=== PATIENT | male | born 1960 | race Caucasian/White ===

== ENCOUNTER 2017-07-24 12:21 | Emergency (ER) | payer BC, OTHER ==
[2017-07-24] MEDS ORDERED: ALBUTEROL NEB 2.5 MG/3 ML INH STA (13:15)
--- NOTE | 2017-07-24 13:17 | ED Physician Documentation ---
PD HPI DYSPNEA - Stated complaint Stated Complaint: CONGESTION - Chief complaint Chief Complaint: Resp - History obtained from History obtained from: Patient - History of Present Illness Timing - onset: Other (Sick for 10 days with productive cough, central chest pain with coughing and mild shortness of breath, he also has a lot of nasal congestion but no sore throat or sinus pain. No body aches.) Review of Systems Constitutional: reports: Fatigue. denies: Fever, Chills, Myalgias, Sweats Nose: reports: Rhinorrhea / runny nose, Congestion. denies: Sinus pressure / pain Throat: denies: Sore throat Respiratory: reports: Dyspnea, Cough PD PAST MEDICAL HISTORY - Past Medical History Past Medical History: Yes Cardiovascular: Hypertension Respiratory: None Neuro: None Endocrine/Autoimmune: None GI: None : None HEENT: None Psych: None Musculoskeletal: None Derm: None - Past Surgical History Past Surgical History: No Ortho: Knee replacement - Present Medications Home Medications: Ambulatory Orders Medication Instructions Recorded Confirmed Telmisartan [Micardis] 1 mg PO DAILY 02/22/15 07/24/17 Albuterol Sulfate [Proventil Hfa 1 - 2 puffs IH Q4H PRN #1 07/24/17 Inhaler] [email or web address] HYDROcod/ACETAM 5/325 [[place] 5/325] 1 - 2 ea PO Q6H PRN #15 tablet 07/24/17 guaiFENesin/CODEINE [Robitussin AC] 5 - 10 ml PO Q6H PRN #120 ml 07/24/17 hydroCHLOROthiazide 25 mg PO DAILY 07/24/17 07/24/17 [Hydrochlorothiazide] predniSONE [Deltasone] 60 mg PO DAILY 5 Days tablet 07/24/17 - Allergies Allergies/Adverse Reactions: Allergies Allergy/AdvReac Type Severity Reaction Status Date / Time No Known Drug Allergies Allergy Verified 07/24/17 12:28 - Social History Does the pt smoke?: No Smoking Status: Never smoker Does the pt drink ETOH?: Yes Does the pt have substance abuse?: No - Immunizations Immunizations are current?: No Immunizations: TDAP >10years/unknown - POLST Patient has POLST: No PD ED PE NORMAL - Vitals Vital signs reviewed: Yes - General General: Alert and oriented X 3, No acute distress - HEENT HEENT: PERRL, Ears normal, Moist mucous membranes, Pharynx benign (s/p uppp), Other - Neck Neck: Supple, no meningeal sign, No bony TTP - Cardiac Cardiac: RRR, No murmur, Other (chest nttp) - Respiratory Respiratory: No respiratory distress, Other (mild exp wheezes, nonfocal) - Abdomen Abdomen: Non tender - Extremities Extremities: No edema, No calf tenderness / cord - Neuro Neuro: Alert and oriented X 3, Normal speech Results - Vitals Vitals: Vital Signs - 24 hr 07/24/17 07/24/17 12:24 13:36 Temperature 37.1 C Heart Rate 88 84 Respiratory 22 16 Rate Blood Pressure 179/92 H O2 Saturation 95 Oxygen O2 Source Room air - EKG (time done) 1235 Rate: Rate (enter#) (87) Rhythm: NSR [place]: Normal Intervals: Normal [place] QRS: Normal Ischemia: Normal ST segments Computer interpretation: Agree with computer - Rads (name of study) 2v chest Radiology: EMP read contemporaneously (NAD, 8mm LETI nodule) PD MEDICAL DECISION MAKING - ED course ED course: 57-year-old gentleman with what sounds like viral bronchitis, no acute findings on chest x-ray. The left upper lobe nodule was discussed with him, this is a pre-existing phenomenon per him and he has had serial x-rays for the last 15 years without change. He was given a copy of the x-ray read to discuss with his physician regardless. He was feeling better after an albuterol neb here. Departure - Departure Disposition: 01 Home, Self Care Clinical Impression: Viral bronchitis, Pulmonary nodule Condition: Good Record reviewed to determine appropriate education?: Yes Instructions: ED Upper Resp Infec No Abx Tx Prescriptions: Albuterol Sulfate [Proventil Hfa Inhaler] 1 - 2 puffs IH Q4H PRN #1 hfa.[email or web address] PRN Reason: Cough guaiFENesin/CODEINE [Robitussin AC] 5 - 10 ml PO Q6H PRN #120 ml PRN Reason: Cough HYDROcod/ACETAM 5/325 [[place] 5/325] 1 - 2 ea PO Q6H PRN #15 tablet PRN Reason: Pain predniSONE [Deltasone] 60 mg PO DAILY 5 Days tablet Comments: Discuss the pulmonary nodule with your physician in [place], however. From your description this sounds like it is a nonchanging phenomenon. No other findings are present on the chest x-ray, specifically there is no pneumonia or bacterial infection present. Call your doctor to arrange a follow-up appointment, make the next available appointment. In the interim, return anytime if worse or if new symptoms develop. Your blood pressure was elevated today on check into the emergency department. This does not mean that you have hypertension, it is a common phenomenon to come to the emergency department and have elevated blood pressure. I recommend that you see your primary care physician within the week to have it rechecked when you are feeling better.
--- NOTE | 2017-07-24 13:42 | XRAY Report ---
EXAM: CHEST RADIOGRAPHY EXAM DATE: 07/24/2017 01:25 PM. CLINICAL HISTORY: Cough chest pain. COMPARISON: None available. TECHNIQUE: 2 views. FINDINGS: Lungs/Pleura: No acute infiltrate or consolidation. No pneumothorax or pleural effusion. A left upper lobe nodule measures approximately 8 mm. Mediastinum: Heart and mediastinal contours are unremarkable. Other: None. IMPRESSION: 1. No acute infiltrate or consolidation. 2. Incidental left upper lobe pulmonary nodule for which a follow-up chest CT is suggested for geovanna mcintyre [facility] Referring Provider Line: [phone] SITE ID: [id number]
[2017-07-24 14:26] VITALS: BP 135/84
== END 2017-07-24 14:25 | disposition home or self-care (01) ==
LOC: ED 12:21
DX: J20.8 Acute bronchitis due to other specified organisms (principal); R91.1 Solitary pulmonary nodule; I10 Essential (primary) hypertension; Z96.659 Presence of unspecified artificial knee joint
CPT/HCPCS: 71020; 93005; 99283; J7613

== ENCOUNTER 2019-03-30 19:45 | Outpatient (CLI) | payer OTHER | END 2019-03-30 19:46 | disposition EMS.NT | LOC: EMS 19:45 | PROVIDERS: ATTEND Surgery | DX: R55 Syncope and collapse (principal) ==

== ENCOUNTER 2019-03-30 21:04 | Emergency (ER) | payer OTHER ==
[2019-03-30 21:16] VITALS: BP 133/70
== END 2019-03-30 21:48 | disposition left against medical advice (07) ==
LOC: ED 21:04
DX: Z53.21 Procedure and treatment not carried out due to patient leaving prior to being seen by health care provider (principal)

== ENCOUNTER 2023-09-02 11:56 | Emergency (ER) | payer OTHER ==
--- NOTE | 2023-09-02 12:14 | ED Physician Documentation ---
History of Present Illness - Stated complaint Stated Complaint: SOA,CHEST PX - Chief complaint Chief Complaint: Cardiac - History obtained from History obtained from: Patient - History of Present Illness Timing: Last night Pain level max: 2 Pain level now: 2 - Additonal information Additional information: Patient is a 63-year-old male who presents to the emergency department stating that he has had substernal chest pain since last night. Nonradiating. Rated as a 2 out of 10. Nothing seems to make it better or worse. He states he was at the [place] this morning and felt lightheaded so decided he should come be evaluated. Denies any cardiac history in the past. Does have a longstanding history of hypertension. No history of diabetes. Does not smoke. He states he was told by an anesthesiologist during her surgery that he had "a glitch" in his heart. He states he was told he should get that looked at by his doctor. The patient is on metoprolol, telmisartan, methylphenidate at home. Is not on any antiplatelet or anticoagulant medication Review of Systems Constitutional: denies: Fever, Chills Nose: denies: Rhinorrhea / runny nose, Congestion GI: denies: Vomiting, Diarrhea Skin: denies: Rash Musculoskeletal: denies: Neck pain, Back pain Neurologic: denies: Headache PD PAST MEDICAL HISTORY - Past Medical History Past Medical History: Yes Cardiovascular: Hypertension Respiratory: None Endocrine/Autoimmune: None GI: None : None HEENT: None Psych: None Musculoskeletal: None Derm: None - Past Surgical History Past Surgical History: No Ortho: Knee replacement - Present Medications Home Medications: Ambulatory Orders Medication Instructions Recorded Confirmed Telmisartan [Micardis] 1 mg PO DAILY 02/22/15 07/24/17 Albuterol Sulfate [Proventil Hfa 1 - 2 puffs IH Q4H PRN #1 07/24/17 Inhaler] hfa.aer.ad HYDROcod/ACETAM 5/325 [[place] 5/325] 1 - 2 ea PO Q6H PRN #15 tablet 07/24/17 guaiFENesin/CODEINE [Robitussin AC] 5 - 10 ml PO Q6H PRN #120 ml 07/24/17 hydroCHLOROthiazide 25 mg PO DAILY 07/24/17 07/24/17 [Hydrochlorothiazide] predniSONE [Deltasone] 60 mg PO DAILY 5 Days tablet 07/24/17 Ciprofloxacin HCl [Cipro] 500 mg PO BID #6 tablet 03/07/22 Ondansetron Odt [Zofran] 4 mg TL Q6H PRN #10 tablet 03/07/22 Aspirin EC [Ecotrin] 81 mg PO DAILY #30 tablet 09/02/23 Metoprolol Succinate [Toprol Xl] 50 mg PO DAILY #30 tablet 09/02/23 - Allergies Allergies/Adverse Reactions: Allergies Allergy/AdvReac Type Severity Reaction Status Date / Time No Known Drug Allergies Allergy Verified 09/02/23 12:01 - Social History Does the pt smoke?: No Smoking Status: Never smoker Does the pt drink ETOH?: Yes Does the pt have substance abuse?: No - Immunizations Immunizations are current?: No Immunizations: TDAP >10years/unknown - POLST Patient has POLST: No PD ED PE NORMAL - Vitals Vital signs reviewed: Yes - General General: Alert and oriented X 3, No acute distress - HEENT HEENT: PERRL, Moist mucous membranes - Neck Neck: Supple, no meningeal sign - Cardiac Cardiac: Other (Irregularly irregular) - Respiratory Respiratory: No respiratory distress, Clear bilaterally - Abdomen Abdomen: Soft, Non tender, Non distended - Derm Derm: Warm and dry - Extremities Extremities: No edema, No calf tenderness / cord - Neuro Neuro: Alert and oriented X 3 - Psych Psych: Normal mood, Normal affect Results - Vitals Vitals: Vital Signs - 24 hr 09/02/23 09/02/23 09/02/23 12:01 12:19 12:29 Temperature 36.8 C Heart Rate 80 127 H 120 H Respiratory 16 12 18 Rate Blood Pressure 123/82 H 116/85 H 119/71 O2 Saturation 100 97 97 09/02/23 09/02/23 09/02/23 12:32 12:38 13:15 Temperature Heart Rate 131 H 96 102 H Respiratory 18 21 22 Rate Blood Pressure 110/66 128/77 94/62 O2 Saturation 97 97 97 09/02/23 13:54 Temperature Heart Rate 90 Respiratory 18 Rate Blood Pressure 113/81 H O2 Saturation 97 Oxygen O2 Source Room air - EKG (time done) 1209 EKG releavant findings:: EKG personally interpreted by author of this note. Relevant findings are: Rate: Rate (enter#) (132) Rhythm: Atrial fibrillation (RVR) QRS: Normal Ischemia: Normal ST segments - Labs Labs: Laboratory Tests 09/02/23 09/02/23 12:12 12:12 WBC 9.5 RBC 4.69 L Hgb 14.8 Hct 41.7 L MCV 88.9 MCH 31.6 H MCHC 35.5 RDW 11.3 L Plt Count 265 MPV 10.4 Neut # (Auto) 7.1 H Lymph # (Auto) 1.7 [place] # (Auto) 0.6 Eos # (Auto) 0.0 Baso # (Auto) 0.0 Absolute Nucleated RBC 0.00 Nucleated RBC % 0.0 Sodium 134 L Potassium 3.8 Chloride 97 L Carbon Dioxide 23 Anion Gap 14.0 H BUN 21 H Creatinine 1.0 Estimated GFR (MDRD) 75 L Glucose 93 Calcium 9.8 Total Bilirubin 1.9 H AST 14 ALT 14 Alkaline Phosphatase 45 Troponin I High Sens 9.0 Total Protein 7.2 Albumin 4.5 Globulin 2.7 Albumin/Globulin Ratio 1.7 Lipase 11 - Rads (name of study) cxr Relevant Findings:: Final report received, See rad report PD Medical Decision Making - ED course Complexity details: reviewed results, re-evaluated patient, considered differential, d/w patient ED course: Patient with atrial fibrillation with rapid ventricular response. No acute findings on chest x-ray. Given 10 mg of diltiazem, heart rate dropped to around 100. He is on 25 metoprolol XL at home. Was given 50mg oral metoprolol. The patient remained rate controlled, blood pressure remained stable. Patient has no further chest pain, shortness of breath or lightheadedness with standing. Will increase his metoprolol to 50 mg daily, started on a baby aspirin. [id number] score is 1. We will have him follow-up with his PCP for further evaluation of his atrial fibrillation, echocardiogram and possible cardiology referral. Patient states that he did recently restart his methylphenidate, we will have him hold this due to the increased tachycardia risk. He had been off it for about 3 months and restarted it a few days ago Patient counseled regarding signs and symptoms for which I believe and urgent re-evaluation would be necessary. Patient with good understanding of and agreement to plan and is comfortable going home at this time This document was made in part using voice recognition software. While efforts are made to proofread this document, sound alike and grammatical errors may occur. No significant lab abnormalities. High sensitive troponin is negative Departure - Departure Disposition: 01 Home, Self Care Clinical Impression: Atrial fibrillation with controlled ventricular rate Condition: Good Instructions: ED Afib Follow-Up: your,doctor in 1 week [Other] Prescriptions: Aspirin EC [Ecotrin] 81 mg PO DAILY #30 tablet Metoprolol Succinate [Toprol Xl] 50 mg PO DAILY #30 tablet Comments: Your prescriptions were sent to the [facility] mail delivery pharmacy. We will increase your metoprolol to 50 mg by mouth daily. We will also start you on a baby aspirin daily. You are found to be in atrial fibrillation with rapid ventricular response today. Your rate is well-controlled here. I would recommend that you stop the methylphenidate as this will increase your heart rate and increase your risk of your heart rate going too high from the atrial fibrillation. Your doctor will likely want to order an echocardiogram and possibly refer you to a homoeopath. Please return if you worsen Forms: PCP List Discharge Date/Time: 09/02/23 14:00
[2023-09-02 12:18] LABS: BASOPHILS % (AUTO) 0.1 %; EOSINOPHILS % (AUTO) 0.1 %; HCT - HEMATOCRIT 41.7 % (42.0-52.0); HGB - HEMOGLOBIN 14.8 g/dL (14.0-18.0); LYMPHOCYTES # (AUTO) 1.7 10^3/uL (1.5-3.5); LYMPHOCYTES % (AUTO) 18.2 %; MEAN CORPUSCULAR HEMOGLOBIN 31.6 pg (27.0-31.0); MEAN CORPUSCULAR HGB CONC 35.5 g/dL (32.0-36.0); MEAN CORPUSCULAR VOLUME 88.9 fL (80.0-94.0); MEAN PLATELET VOLUME 10.4 fL (7.4-11.4); MONOCYTES # (AUTO) 0.6 10^3/uL (0.0-1.0); MONOCYTES % (AUTO) 6.4 %; NEUTROPHILS # (AUTO) 7.1 10^3/uL (1.5-6.6); PLT - PLATELET COUNT 265 10^3/uL (130-450); RED BLOOD COUNT 4.69 10^6/uL (4.70-6.10); RED CELL DISTRIBUTION WIDTH 11.3 % (12.0-15.0); WHITE BLOOD COUNT 9.5 x10^3/uL (4.8-10.8)
[2023-09-02] MEDS: diltiaZEM INJ 5 MG/ML VIAL IVP STA (12:26)
[2023-09-02 12:29] VITALS: O2SAT 97
[2023-09-02] MEDS: ASPIRIN CHEW 81 MG TABLET PO STA (12:30)
[2023-09-02 12:33] LABS: ALBUMIN 4.5 g/dL (3.2-5.5); ALBUMIN/GLOBULIN RATIO 1.7 (1.0-2.2); BILIRUBIN,TOTAL 1.9 mg/dL (0.2-1.0); CALCIUM 9.8 mg/dL (8.5-10.3); POTASSIUM 3.8 mmol/L (3.5-4.5); TOTAL PROTEIN 7.2 g/dL (6.4-8.9)
--- NOTE | 2023-09-02 12:36 | XRAY Report ---
PROCEDURE: Chest 1V INDICATIONS: Chest pain TECHNIQUE: One view of the chest was acquired. COMPARISON: None. FINDINGS: Surgical changes and devices: Chest x-ray 07/24/2017 Lungs and pleura: No pleural effusions or pneumothorax. Lungs are clear. Mediastinum: Mediastinal contours appear normal. Heart size is normal. Bones and chest wall: No suspicious bony lesions. Overlying soft tissues appear unremarkable. IMPRESSION: No acute cardiopulmonary process. Reviewed by: Anabel Angulo MD on 09/02/2023 12:34 PM [facility] Approved by: Anabel Angulo MD on 09/02/2023 12:34 PM [facility] Station ID: [id number]
[2023-09-02] MEDS: METOPROLOL TARTRATE 50 MG TABLET PO STA (12:57)
[2023-09-02] MEDS: SODIUM CHLORIDE 0.9% 1,000 ML IV STA (13:24)
[2023-09-02 13:57] VITALS: BP 113/81
== END 2023-09-02 14:00 | disposition home or self-care (01) ==
LOC: ED 11:56
DX: I48.91 Unspecified atrial fibrillation (principal); I10 Essential (primary) hypertension
CPT/HCPCS: 36415; 71045; 80053; 83690; 84484; 85025; 93005; 96374; 99284; A9270